=== PATIENT | male | born 1975 | race Caucasian/White ===

== ENCOUNTER 2020-01-16 09:30 | Emergency (ER) | payer BC ==
--- OUTSIDE RECORDS SUMMARY | 2020-01-16 09:39 | XMS REPORT | Clinical Summary ---
:1975 Author Organization [facility] Address [address] [place] [address] Care Team Providers Name Role Phone Deandre Keller NP Primary Care Provider Allergies No Known Allergies Medications Medication Sig Dispensed Refills Start Date End Date Status glipiZIDE (GLUCOTROL) 5 Take 5 mg by 0 Active MG tablet mouth 2 (two) times a day before meals. sitaGLIPtin-metformin Take 1 tablet by 0 Active (JANUMET) 50-1,000 mg mouth 2 (two) per tablet times a day with meals. empagliflozin Take 25 mg by 0 Ac tive (JARDIANCE) 25 mg tablet mouth daily. irbesartan-hydrochloroth Take 1 tablet by 0 Active iazide (AVALIDE) mouth daily. 300-12.5 mg per tablet Active Problems Not on file Family History Medical History Relation Name Comments Leukemia Father Breast cancer Maternal Grandmother Diabetes Mother Hypertension Mother Relation Name Status Comments Father Maternal Grandmother Mother Social History Tobacco Use Types Packs/Day Years Used Date Current Every Day Smoker Smokeless Tobacco: Never Used Alcohol Use Drinks/Week oz/Week Comments Yes socially Sex Assigned at Date Recorded Not on file Job Start Date Occupation Industry Not on file Not on file Not on file Travel History Travel Start Travel End No recent travel history available. 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
--- OUTSIDE RECORDS SUMMARY | 2020-01-16 09:40 | XMS REPORT | Continuity of Care Document ---
:1975 Author Organization [facility] t Address [address] [place] [address] Care Team Providers Name Role Phone Arianna SAMPLE GRINDER, Sumit Primary Care Physician Problems This patient has no known problems. Allergies, Adverse Reactions, Alerts This patient has no known allergies or adverse reactions. Family History Family Member Diagnosis Comments Start Date Stop Date Source Natural father Leukemia [facility] Maternal [facility] Natural mother Hypertension [facility] Social History Social Habit Start Date Stop Date Quantity Comments Source Sex Assigned At [facility] Alcohol intake 2018-06-14 2018-06-14 Current drinker Bianca on [employer] 00:00:00 00:00:00 of alcohol (finding) Alcohol Comment 2018-06-14 2018-06-14 socially [facility] ethodi 00:00:00 00:00:00 Smoking Status Start Date Stop Date Source Current every day smoker 2018-06-14 00:00:00 Ariel ston [facility] Medications Ordered Filled Start Stop Current Ordering Indication Dosage Frequency Signature Comments Components Source Medication Medication Date Date Medication? Clinician (SIG) Name Name glipiZIDE 2017-08 Yes 5mg Q.5D Take 5 mg Ariel ston (GLUCOTROL) 1-14 by mouth 2 Me thodi 5 MG tablet 13:07: (two) st 14 times a day before meals. sitaGLIPtin 2017-08 Yes 1{tbl} Q.5D Take 1 [place] -metformin 1-14 tablet by Meth keyshawn (JANUMET) 13:07: mouth 2 st 50-1,000 mg 14 (two) per tablet times a day with meals. empaglifloz 2017-08 Yes 25mg QD Take 25 mg Zaman in 1-14 by mouth Methodi (JARDIANCE) 13:07: daily. st 25 mg 14 tablet irbesartan- 2017-08 Yes 1{tbl} QD Take 1 [place] hydrochloro 1-14 tablet by Met hodi thiazide 13:07: mouth st (AVALIDE) 14 daily. 300-12.5 mg per tablet Procedures This patient has no known procedures. Plan of Care Planned Activity Planned Date Details Comments Source Future Scheduled 2020-03-01 INFLUENZA VACCINE Filippoto n [facility] Test 00:00:00 [code = INFLUENZA VACCINE] Encounters Start End Encounter Admission Attending Care Care Encounter Source Date/Time Date/Time Type Type Clinicians Facility Department ID 2019-12-11 2019-12-11 Outpatient [id number] 06:33:00 06:33:00 Aida [facility] or[facility] l Results This patient has no known results.
[2020-01-16] MEDS ORDERED: DIPHENHYDRAMINE 50 MG/ML VIAL ONE (09:54)
[2020-01-16] MEDS ORDERED: FAMOTIDINE 20 MG/2 ML VIAL IV ONE (09:54)
[2020-01-16] MEDS ORDERED: METHYLPREDNISOLONE 125 MG INJ ONE (09:54)
[2020-01-16 10:02] LABS: Absolute Lymphocytes (CBC) 1.7 K/uL (0.7-4.9); Basophils % 1.1 % (0-1.3); Hematocrit 52.2 % (39.6-49.0); Lymphocytes % 29.4 % (15.3-44.8); MPV 8.3 fL (7.6-11.3); RBC Red Blood Cell Count 5.82 M/uL (4.33-5.43)
[2020-01-16] MEDS ORDERED: predniSONE 20 MG TAB ONE (10:04)
[2020-01-16] MEDS ORDERED: NA CHLORIDE 0.9% 500 ML ONE (10:04)
--- NOTE | 2020-01-16 11:02 | EDPHYS ---
Physician Documentation [facility] Name: Jace Ulrich Age: 44 yrs Sex: Male : 1975 Arrival Date: 01/16/2020 Time: 09:32 Bed 4 Private MD: KEL Physician Devante Yoder HPI: 01/15 09:56 This 44 yrs old Male presents to ER via Ambulatory with complaints of Throat fabrizio Swelling. 09:56 The patient presents with difficulty swallowing. Onset: The symptoms/episode fabrizio began/occurred just prior to arrival. Associated signs and symptoms: Pertinent positives: swelling. Possible causes: iodine. had ct abd and pelvis this am with contrast, throat began itching and swelling. At home the patient or guardian has treated the symptoms with nothing. Severity of symptoms: At their worst the symptoms were mild moderate in the emergency department the symptoms are unchanged. The patient has not experienced similar symptoms in the past. Historical: - Allergies: 09:40 No Known Allergies; aa5 - Immunization history:: Adult Immunizations unknown. - Family history:: not pertinent. - Social history:: Smoking status: unknown. ROS: 09:56 Constitutional: Negative for fever, chills, and weight loss, Eyes: Negative for injury, fabrizio pain, redness, and discharge, Neck: Negative for injury, pain, and swelling, Cardiovascular: Negative for chest pain, palpitations, and edema, Respiratory: Negative for shortness of breath, cough, wheezing, and pleuritic chest pain, Abdomen/GI: Negative for abdominal pain, nausea, vomiting, diarrhea, and constipation, Back: Negative for injury and pain, : Negative for injury, bleeding, discharge, and swelling, MS/Extremity: Negative for injury and deformity, Skin: Negative for injury, rash, and discoloration, Neuro: Negative for headache, weakness, numbness, tingling, and seizure, Psych: Negative for depression, anxiety, suicide ideation, homicidal ideation, and hallucinations, Allergy/Immunology: Negative for hives, rash, and allergies, Endocrine: Negative for neck swelling, polydipsia, polyuria, polyphagia, and marked weight changes, Hematologic/Lymphatic: Negative for swollen nodes, abnormal bleeding, and unusual bruising. 09:56 ENT: Positive for throat swelling. 09:56 Neck: Positive for swelling. 09:56 Cardiovascular: Negative for chest pain. Exam: 09:56 Constitutional: This is a well developed, well nourished patient who is awake, alert, fabrizio and in no acute distress. Head/Face: Normocephalic, atraumatic. Eyes: Pupils equal round and reactive to light, extra-ocular motions intact. Lids and lashes normal. Conjunctiva and sclera are non-icteric and not injected. Cornea within normal limits. Periorbital areas with no swelling, redness, or edema. Neck: Trachea midline, no thyromegaly or masses palpated, and no cervical lymphadenopathy. Supple, full range of motion without nuchal rigidity, or vertebral point tenderness. No Meningismus. Chest/axilla: Normal chest wall appearance and motion. Nontender with no deformity. No lesions are appreciated. Cardiovascular: Regular rate and rhythm with a normal S1 and S2. No gallops, murmurs, or rubs. Normal PMI, no JVD. No pulse deficits. Respiratory: Lungs have equal breath sounds bilaterally, clear to auscultation and percussion. No rales, rhonchi or wheezes noted. No increased work of breathing, no retractions or nasal flaring. Abdomen/GI: Soft, non-tender, with normal bowel sounds. No distension or tympany. No guarding or rebound. No evidence of tenderness throughout. Back: No spinal tenderness. No costovertebral tenderness. Full range of motion. Male : Normal genitalia with no discharge or lesions. Skin: Warm, dry with normal turgor. Normal color with no rashes, no lesions, and no evidence of cellulitis. MS/ Extremity: Pulses equal, no cyanosis. Neurovascular intact. Full, normal range of motion. Neuro: Awake and alert, GCS 15, oriented to person, place, time, and situation. Cranial nerves II-XII grossly intact. Motor strength 5/5 in all extremities. Sensory grossly intact. Cerebellar exam normal. Normal gait. Psych: Awake, alert, with orientation to person, place and time. Behavior, mood, and affect are within normal limits. 09:56 ENT: Posterior pharynx: Airway: normal, no evidence of obstruction, Tonsils: are normal in appearance, Uvula: no erythema, edematous, swelling, that is mild, erythema, that is mild, exudate, is not appreciated, peritonsillar mass, is not appreciated, pooling of secretions, is not appreciated. Vital Signs: 09:36 BP 149 / 107; Pulse 84; Resp 16; Temp 97.5(TE); Pulse Ox 98% on R/A; Weight 145.6 kg; ss Height 6 ft. 4 in. (193.04 cm); Pain 0/10; 10:07 BP 133 / 97; Pulse 75; Resp 20 S; Pulse Ox 96% on R/A; aa5 10:51 BP 125 / 89; Pulse 67; Resp 19; Pulse Ox 97% ; aa5 11:10 BP 124 / 87; Pulse 72; Resp 16 S; Pulse Ox 98% on R/A; aa5 09:36 Body Mass Index 39.07 (145.60 kg, 193.04 cm) ss MDM: 09:38 Patient medically screened. [facility] 10:00 Data reviewed: vital signs, nurses notes, lab test result(s). [facility] 10:00 Differential diagnosis: anaphylaxis, angioedema, foreign body or airway obstruction fabrizio urticaria, Vasovagal Reactions. 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 10:25 Counseling: I had a detailed discussion with the patient and/or guardian regarding: the [facility] historical points, exam findings, and any diagnostic results supporting the discharge/admit diagnosis, lab results. Medication response: benadyl, pepcid, prednisone, epipen. 11:01 Response to treatment: the patient's symptoms have markedly improved after treatment, fabrizio the patient's condition has returned to base line. ED course: pt much much better, no dyspnea, no stridor. 01/15 09:45 Order name: CBC with Diff; Complete Time: 11:00 ss 01/15 09:45 Order name: Chem 7; Complete Time: 11:00 ss Administered Medications: 09:47 Drug: Benadryl 50 mg Route: IVP; Site: right antecubital; aa5 11:18 Follow up: Response: No adverse reaction jl7 09:47 Drug: SOLU-Medrol 125 mg Route: IVP; Site: right antecubital; aa5 11:18 Follow up: Response: No adverse reaction jl7 09:50 Drug: Pepcid 40 mg Route: IVP; Site: right antecubital; aa5 11:18 Follow up: Response: No adverse reaction jl7 09:55 Drug: predniSONE 60 mg Route: PO; aa5 11:18 Follow up: Response: No adverse reaction jl7 09:55 Drug: NS 0.9% 500 ml Route: IV; Rate: bolus; Site: right antecubital; aa5 10:30 Follow up: Response: No adverse reaction; IV Status: Completed infusion; IV Intake: jl7 500ml Disposition: 01/16/20 11:01 Discharged to Home. Impression: Urticaria, Angioneurotic edema. - Condition is Stable. - Discharge Instructions: Hives, Angioedema, Angioedema, Gkst-dh-Ashs, Hives, Dbha-sy-Yefa. - Prescriptions for Benadryl 25 mg Oral Capsule - take 2 capsule by ORAL route every 6 hours As needed; 45 tablet. Pepcid 20 mg Oral Tablet - take 1 tablet by ORAL route every 12 hours for 10 days; 20 tablet. Prednisone 20 mg Oral Tablet - take 2 tablet by ORAL route once daily for 5 days; 10 tablet. EpiPen 0.3 mg Injection auto- injector - inject 1 pen by INTRAMUSCULAR route one time Inject into the outer portion of the thigh, through clothing if necessary. Indicated in the emergency treatment of allergic reactions; 1 Container. - Medication Reconciliation Form, Thank You Letter, Antibiotic Education, Prescription Opioid Use form. - Follow up: Private Physician; When: 2 - 3 days; Reason: Recheck today's complaints, Continuance of care, Re-evaluation by your physician. - Problem is new. - Symptoms have improved. Signatures: Dispatcher [employer] EDMS Devante Yoder MD MD cha Calderon, Audri, RN RN aa5 Sunshine Jeffery RN RN ss Leal, Jahala, RN RN jl7 Corrections: (The following items were deleted from the chart) 11:18 11:01 01/16/2020 11:01 Discharged to Home. Impression: Urticaria; Angioneurotic edema. jl7 Condition is Stable. Discharge Instructions: Hives, Angioedema, Angioedema, Ojef-qp-Ticc, Hives, Hctt-ql-Brov. Prescriptions for Benadryl 25 mg Oral Capsule - take 2 capsule by ORAL route every 6 hours As needed; 45 tablet, Pepcid 20 mg Oral Tablet - take 1 tablet by ORAL route every 12 hours for 10 days; 20 tablet, Prednisone 20 mg Oral Tablet - take 2 tablet by ORAL route once daily for 5 days; 10 tablet, EpiPen 0.3 mg Injection auto-injector - inject 1 pen by INTRAMUSCULAR route one time Inject into the outer portion of the thigh, through clothing if necessary. Indicated in the emergency treatment of allergic reactions; 1 Container. and Forms are Medication Reconciliation Form, Thank You Letter, Antibiotic Education, Prescription Opioid Use. Follow up: Private Physician; When: 2 - 3 days; Reason: Recheck today's complaints, Continuance of care, Re-evaluation by your physician. Problem is new. Symptoms have improved. fabrizio
--- NOTE | 2020-01-16 11:02 | ER ---
Nurse's Notes [facility] Name: Jace Ulrich Age: 44 yrs Sex: Male : 1975 Arrival Date: 01/16/2020 Time: 09:32 Bed 4 Private MD: Diagnosis: Urticaria;Angioneurotic edema Presentation: 01/15 09:36 Chief complaint: Patient states: "I just had a CT scan with contrast this morning, but ss about 20-30 minutes ago I started to feel like my throat is closing up.". Coronavirus screen: Proceed with normal triage. Patient denies a cough. Patient denies shortness of breath or difficulty breathing. Patient denies measured and/or subjective temperature greater than 100.4F prior to today's visit. Patient denies travel on a cruise ship or to a country the [facility] currently lists as an affected area. Patient denies contact with known and/or suspected case of COVID-19. Ebola Screen: Patient denies exposure to infectious person. Patient denies travel to an Ebola-affected area in the 21 days before illness onset. Initial Sepsis Screen: Does the patient meet any 2 criteria? No. Patient's initial sepsis screen is negative. Does the patient have a suspected source of infection? No. Patient's initial sepsis screen is negative. Risk Assessment: Do you want to hurt yourself or someone else? Patient reports no desire to harm self or others. Onset of symptoms was January 16, 2020. 09:36 Method Of Arrival: Ambulatory ss 09:36 Acuity: CRISSY 2 ss Historical: - Allergies: 09:40 No Known Allergies; aa5 - Immunization history:: Adult Immunizations unknown. - Family history:: not pertinent. - Social history:: Smoking status: unknown. Screenin:40 Abuse screen: Denies threats or abuse. Nutritional screening: No deficits noted. aa5 Tuberculosis screening: No symptoms or risk factors identified. Fall Risk None identified. Assessment: 09:40 General: Appears uncomfortable, Behavior is calm, cooperative. Pain: Denies pain. aa5 Neuro: Level of Consciousness is awake, alert, obeys commands, Oriented to person, place, time, situation. Cardiovascular: Heart tones S1 S2 present Rhythm is regular. Respiratory: Airway is patent Respiratory effort is even, unlabored, Respiratory pattern is regular, symmetrical, Breath sounds are clear bilaterally. Denies cough, shortness of breath. GI: Abdomen is round Patient currently denies nausea, vomiting. : No signs and/or symptoms were reported regarding the genitourinary system. EENT: Reports throat swelling, speech is hoarse . Derm: Skin is pink, warm \\T\\ dry. Musculoskeletal: Range of motion: intact in all extremities. 10:07 Reassessment: Patient is alert, oriented x 3, equal unlabored respirations, skin aa5 warm/dry/pink. Patient states feeling better. Patient states symptoms have improved. Pt states "my throat feels way better now" . 10:35 Reassessment: Pt resting in bed with eyes closed, respirations even and unlabored. Pt aa5 easy to awake to verbal stimuli, reports throat feels better. . Vital Signs: 09:36 BP 149 / 107; Pulse 84; Resp 16; Temp 97.5(TE); Pulse Ox 98% on R/A; Weight 145.6 kg; Height 6 ft. 4 in. (193.04 cm); Pain 0/10; 10:07 BP 133 / 97; Pulse 75; Resp 20 S; Pulse Ox 96% on R/A; aa5 10:51 BP 125 / 89; Pulse 67; Resp 19; Pulse Ox 97% ; aa5 11:10 BP 124 / 87; Pulse 72; Resp 16 S; Pulse Ox 98% on R/A; aa5 09:36 Body Mass Index 39.07 (145.60 kg, 193.04 cm) ED Course: 09:32 Patient arrived in ED. ag5 09:38 Triage completed. 09:38 Devante Yoder MD is Attending Physician. fabrizio 09:40 Patient has correct armband on for positive identification. Bed in low position. Call aa5 light in reach. Side rails up X2. Pulse ox on. NIBP on. 09:46 Initial lab(s) drawn, by me, sent to lab. Inserted saline lock: 18 gauge in right aa5 antecubital area, using aseptic technique. Blood collected. 10:02 Amaya Horton, RN is Primary Nurse. aa5 11:17 No provider procedures requiring assistance completed. IV discontinued, intact, jl7 bleeding controlled, No redness/swelling at site. Pressure dressing applied. Administered Medications: 09:47 Drug: Benadryl 50 mg Route: IVP; Site: right antecubital; aa5 11:18 Follow up: Response: No adverse reaction jl7 09:47 Drug: SOLU-Medrol 125 mg Route: IVP; Site: right antecubital; aa5 11:18 Follow up: Response: No adverse reaction jl7 09:50 Drug: Pepcid 40 mg Route: IVP; Site: right antecubital; aa5 11:18 Follow up: Response: No adverse reaction jl7 09:55 Drug: predniSONE 60 mg Route: PO; aa5 11:18 Follow up: Response: No adverse reaction jl7 09:55 Drug: NS 0.9% 500 ml Route: IV; Rate: bolus; Site: right antecubital; aa5 10:30 Follow up: Response: No adverse reaction; IV Status: Completed infusion; IV Intake: jl7 500ml Intake: 10:30 IV: 500ml; Total: 500ml. jl7 Outcome: 11:01 Discharge ordered by . fabrizio 11:17 Discharged to home ambulatory. [facility] 11:17 Condition: stable 11:17 Discharge instructions given to patient, Instructed on discharge instructions, follow up and referral plans. medication usage, Demonstrated understanding of instructions, follow-up care, medications, Prescriptions given X 4. 11:18 Patient left the ED. jl7 Signatures: Devante Yoder MD MD cha Calderon, Audri RN RN aa5 Sunshine Jeffery RN RN ss Leal, Jahala, RN RN jl7 Haley Muller ag5 Corrections: (The following items were deleted from the chart) 18:19 09:40 EENT: Reports throat swelling, speak is hoarse . aa5 aa5
[2020-01-16 11:26] VITALS: TEMP 97.5
[2020-01-16 11:31] VITALS: BP 124/87; O2SAT 98
== END 2020-01-16 11:18 | disposition home or self-care (01) ==
LOC: ER 09:30
DX: T78.3XXA Angioneurotic edema, initial encounter (principal)
CPT/HCPCS: 96361; 85025; 80048; 36415; 96375; 96374; 99284; J1200; J7040; J2930; J7512